=== PATIENT | female | born 1980 | race Caucasian/White ===

== ENCOUNTER 2017-04-30 10:51 | Day surgery (SDC) | payer BC ==
[2017-04-26 14:41] VITALS: BMI 24.7
[~2017-04-30 10:51] MED LIST: BUPIVACAINE HCL/PF 0.25% (2.5MG/ML) 10 ML VIAL IJ ONE; THROMBIN (BOVINE) 5,000 UNIT VIAL TP ONE; methylPREDNISolone ACET (DEPO) 40 MG/1 ML VIAL IM ONE; oxyCODONE HCL 10 MG SUSTAINED ACTING TABLET PO ONE
[2017-04-30] MEDS ORDERED: oxyCODONE HCL 10 MG SUSTAINED ACTING TABLET ONE (11:32)
--- NOTE | 2017-04-30 14:24 | HP ---
History & Physical Update - History History: No Change - Physical Physical: No Change - Assessment Assessment: No Change - Plan Plan: No Change
[2017-04-30] MEDS ORDERED: MIDAZOLAM HCL 2 MG/2 ML SINGLE DOSE VIAL ONE ×2 (14:50→16:24)
[2017-04-30] MEDS ORDERED: THROMBIN (BOVINE) 5,000 UNIT VIAL TP ONE ×2 (15:12→16:30)
[2017-04-30] MEDS ORDERED: methylPREDNISolone ACET (DEPO) 40 MG/1 ML VIAL ONE (15:12)
[2017-04-30] MEDS ORDERED: LIDOCAINE 1%/EPI 1:100000 (20 ML MULTI DOSE VIAL) ONE (15:12)
[2017-04-30] MEDS ORDERED: BUPIVACAINE HCL/PF 2.5 MG/ML - 30 ML VIAL IJ ONE (15:12)
[2017-04-30] MEDS ORDERED: LIDOCAINE 1%/EPI 1:100000 (50 ML MULTI DOSE VIAL) INF ONE (15:45)
[2017-04-30] MEDS ORDERED: BUPIVACAINE HCL/PF 0.25% (2.5MG/ML) 10 ML VIAL IJ ONE (16:30)
[2017-04-30] MEDS ORDERED: methylPREDNISolone ACET (DEPO) 40 MG/1 ML VIAL IM ONE (16:30)
[2017-04-30] MEDS ORDERED: LIDOCAINE 1% P/F 10 MG/ML VIAL ONE (16:32)
[2017-04-30] MEDS ORDERED: LIDOCAINE HCL 1%, 10 MG/ML (20ML VIAL) ONE (16:33)
[2017-04-30] MEDS ORDERED: LIDOCAINE HCL 1%, 10 MG/ML (50 mL VIAL) IJ ONE (16:45)
[2017-04-30] MEDS ORDERED: ONDANSETRON 4 MG/2 ML VIAL ONE (17:11)
[2017-04-30] MEDS ORDERED: oxyCODONE HCL 5 MG TABLET PO PRN (17:28)
[2017-04-30] MEDS ORDERED: ONDANSETRON 4 MG/2 ML VIAL IVPUSH PRN (17:28)
[2017-04-30] MEDS ORDERED: LACTATED RINGERS SOLUTION 1,000 ML IV SCH (17:30)
[2017-04-30] MEDS: oxyCODONE HCL 5 MG TABLET PO PRN ×2 (18:15→18:55)
[2017-04-30 18:17] VITALS: TEMP 97.7
[2017-04-30] MEDS ORDERED: oxyCODONE HCL 5 MG TABLET ONE (18:53)
[2017-04-30 19:16] VITALS: BP 124/81; PULSE 78
--- NOTE | 2017-07-05 13:17 | OP ---
DATE OF OPERATION: 04/30/2017 PREOPERATIVE DIAGNOSIS: Spinal stenosis, L5-S1. POSTOPERATIVE DIAGNOSIS: Spinal stenosis, L5-S1. PROCEDURE PERFORMED: Laminectomy, L5-S1. SURGEON: Evaristo Pascual MD PRIVATE SECURITY GUARD: MICHAELA White ESTIMATED BLOOD LOSS: 60 mL. INTRAVENOUS FLUIDS: By Anesthesia. ANESTHESIA: Spinal. COMPLICATIONS: There were none. DISPOSITION: Patient brought to the PACU in stable condition. INDICATION FOR SURGERY: The patient is a 37-year-old female who has been suffering from pain from her back down the leg. She is also noted to have a footdrop. She has gone through an exhaustive course of treatment for this including medications, physical therapy, as well as injections. Unfortunately, her pain continued to persist despite all this. At this point, risks, benefits, and alternatives were discussed including the fact that she might not recover fully from her footdrop. Patient understood the risks involved in the procedure and consented to the surgery. DESCRIPTION OF PROCEDURE: The patient was brought to the operating room by the anesthesia staff after appropriate patient identification was performed and spinal anesthesia was given, the patient was placed prone onto the OR table. All areas of bony prominences were well padded at this time. Two needles were placed into the back to [place] off the L5-S1 segments and x-rays taken to confirm this was correct. Needle was removed. Lidocaine with epinephrine, 10 mL, was injected into her back. At this time, her back was prepped and draped in a sterile manner. At this point, a timeout completed and incision was made on top of L5 down to bottom of S1. Dissection was carried down to the fascia. Fascia was split open at this time, and retractor was placed, and a spinal needle was placed into the L5 lamina and x-ray was taken to confirm this was correct. Needle was removed, and the microscope was brought in. A portion of the L5-S1 lamina were removed. The interspinous ligament of L5-S1 removed. Flavum was identified and was removed. A complete decompression was performed. By end of the procedure the S1 nerve root appeared to be well decompressed. All bleeding was controlled at this time. Steroid was placed over the nerve room. FloSeal was placed over that. The fascia was closed with No. 1 Vicryl suture. Subcutaneous tissue was closed with 2-0 Vicryl suture. Skin was closed with 3-0 Monocryl. Dermabond was applied. Steri-Strips were applied. Sterile dressing was applied. Patient was placed supine on her bed and brought to the PACU in stable condition. Demetrio BRITO/[id number]
== END 2017-04-30 19:05 | disposition home or self-care (01) ==
LOC: FASU 10:51
PROVIDERS: ATTEND Orthopaedic Surgery Orthopaedic Surgery of the Spine
PROC: 01NB0ZZ Release Lumbar Nerve, Open Approach (ICD-10-PCS; principal; 2017-04-30 15:15)
DX: M48.07 Spinal stenosis, lumbosacral region (principal)
CPT/HCPCS: 84703; 94760